=== PATIENT | female | born 2005 | race Asian ===

== ENCOUNTER 2023-05-24 07:49 | Emergency (ER) | payer SELFPAY ==
[2023-05-24] MEDS ORDERED: Ipratropium/Albuterol 3 ML NEB ONE (08:34)
[2023-05-24] MEDS ORDERED: predniSONE 20 MG TAB ONE (08:34)
[2023-05-24] MEDS ORDERED: Acetaminophen 500 MG TAB ONE (09:13)
== END 2023-05-24 09:51 | disposition home or self-care (01) ==
LOC: ERS 07:49
DX: J45.901 Unspecified asthma with (acute) exacerbation (principal); Z79.899 Other long term (current) drug therapy
CPT/HCPCS: 71046; 93005; 94640; J7512; J7620

== ENCOUNTER 2023-07-09 13:40 | Emergency (ER) | payer SELFPAY ==
[2023-07-09] MEDS ORDERED: Ipratropium/Albuterol 3 ML NEB ONE (15:29)
[2023-07-09] MEDS ORDERED: Dexamethasone 10 MG/ML VIAL ONE (15:30)
== END 2023-07-09 17:42 | disposition home or self-care (01) ==
LOC: ERS 13:40
DX: J45.901 Unspecified asthma with (acute) exacerbation (principal); Z79.899 Other long term (current) drug therapy
CPT/HCPCS: 71046; 93005; J1100; J7620